=== PATIENT | female | born 1995 | race Caucasian/White ===

== ENCOUNTER 2023-01-24 09:28 | Inpatient (IN) ==
[2023-01-24] MEDS ORDERED: LACTATED RINGER'S 1,000 ML IV PRN (09:46)
[2023-01-24] MEDS ORDERED: LIDOCAINE 1% LOCAL 20 ML VIAL INFIL PRN (09:46)
[2023-01-24] MEDS ORDERED: OXYTOCIN 30 UNITS/500 ML BAG IV PRN ×3 (09:46→16:20)
--- NOTE | 2023-01-24 09:49 | History & Physical Report ---
Date of Service January 24, 2023 Assessment & Plan (1) with 39 completed weeks gestation: (2) Encounter for induction of labor: Plan admit. pitocin induction. desires unmedicated delivery.. arom as indicated. fetus category one. Anticipate . Admission and Anticipated Discharge Date Admission Date: January 24, 2023 History of Present Illness Chief Complaint: elective iol Primary Care Provider: NO PCP Patient is a with iup at 39 1/7 weeks who presents to labor and delivery for elective induction. FOB is a long distance class b truck driver and wanted to schedule induction for convienence. Patient presented to labor and delivery last night for potential bulb and found to be fairly favorable. Notes good fm. no lof/vb/ctx. and Delivery Plans Covid vaccine x 2 BMI 35-39 At Beginning Of *Growth US at 32wks *NSTs at 36wks OB Labs: Blood Type B Positive 06/22/22 Antibody Screen NEGATIVE 06/22/22 Hemoglobin 12.7 g/dl (12.0-16.0) 11/09/22 Hematocrit 38.2 % (34.1-44.9) 11/09/22 Mean Corpuscular Volume 84.9 fL (80.0-100.0) 06/22/22 Platelet Count 282 K/uL (130-400) 06/22/22 Rubella IgG Antibody Immune (Immune) 06/22/22 Rapid Plasma Reagin Nonreactive (Nonreactive) 06/22/22 Hepatitis B Surface Antigen. NON-REACTIVE (NON-REACTIVE) 06/22/22 Hepatitis C Antibody (EIA) NON-REACTIVE (NON-REACTIVE) 06/22/22 HIV (1&2) Ag and Ab Confirmation NON-REACTIVE (NON-REACTIVE) 06/22/22 Glucose 1 Hour 50 gm Load 131 mg/dl (70-130) H 11/09/22 OB Optional Labs: Chlamydia trachomatis RNA NOT DETECTED (NOT DETECTED) 06/22/22 Neisseria gonorrhoeae RNA NOT DETECTED (NOT DETECTED) 06/22/22 Labs Reviewed: cfDNA, cf/sma--declines smp Declines quad--mln passed 28 week s hr gtt--akh gbs neg--akh Allergies Allergy/AdvReac Type Severity Reaction Status Date / Time No Known Allergies Allergy Verified 01/23/23 19:39 Home Medications Medication Instructions Recorded Confirmed Type prenat.vits,nato,vvt-xvsb-okwyf 1 tab PO DAILY 06/18/22 01/23/23 History Patient History Medical History IBS (irritable bowel syndrome) Obesity in , antepartum Surgical History H/O spinal fusion History of repair of ACL Family History Mother Anemia Crohn's disease Social History Smoking Status: Never smoker Hx Alcohol Use: No Hx Substance Use: No marital status: marital status details: Tim (25) [phone] Current Living Situation: Spouse Current Living Situation Comment: lives with spouse, 2 children, 1 dog, 1 cat, spouse to change litter. current occupational status: employed current occupation: daycare worker OB History Past Pregnancies Del. Date GA wks Lbr Lgth wt Sex Type del Anes Place Del Prov ? Comment 03/20/17 37 6lb 10 oz M Non e Other [facility] Sanders N 08/14/19 40 7lb 12oz F None Other KECIA Sanders N [employer]IST History noncontributory Physical Exam Constitutional: WD/WN, vitals as above Gastrointestinal (Abdomen): soft, nt, gravid, obese Psychiatric: A+Ox3, euthymic affect Genitourinary: cx--3/50/-2/soft toco--rare efm--120s with mod variability, accels to 150s, no decels Results & Data Vital Signs (Past 12 Hours) Vital Signs Pulse BP 01/24/23 09:41 74 126/67 Code Status & VTE Plan VTE Prophylaxis Plan VTE Prophylaxis will be ordered: No Coding Level of Care Code None Diagnoses with 39 completed weeks gestation Z3A.39 Encounter for induction of labor Z34.90
[2023-01-24 10:33] LABS: Hematocrit (blood only) 38.6 % (37.0-47.0); Hemoglobin 12.9 g/dl (12.0-16.0); Mean Corpuscular Hemoglobin 27.8 pg (25.0-34.0); Mean Corpuscular Hgb Conc 33.4 g/dL (32.0-36.0); Mean Corpuscular Volume 83.2 fL (80.0-100.0); Mean Platelet Volume 11.4 fL (9.4-12.4); Platelet Count 214 K/uL (130-400); RDW Coefficient of Variation 14.1 % (11.5-14.5); RDW Standard Deviation 42.5 fL (36.4-46.3); Red Blood Count 4.64 M/uL (4.20-5.40); White Blood Count 7.62 K/ul (4.8-10.8)
--- NOTE | 2023-01-24 13:43 | Labor Progress Brief Note ---
Date of Service January 24, 2023 Subjective requesting arom Assessment & Plan (1) Encounter for induction of labor: Plan continue current management. fetus category one. Admission and Anticipated Discharge Date Admission Date: January 24, 2023 Physical Exam Physical Exam: cx--/-2 arom--clear toco--q2-4min, pit at 6 efm--115 with mod variabiltiy, accels to 150s , no decels Results & Data Vital Signs (Past 12 Hours) Vital Signs Temp Pulse Resp BP 01/24/23 09:55 36.4 C L 74 16 126/67 01/24/23 13:37 72 01/24/23 13:37 119/67 01/24/23 13:32 72 01/24/23 13:32 122/77 01/24/23 12:38 63 01/24/23 12:38 113/66 01/24/23 11:38 60 01/24/23 11:38 115/77 01/24/23 10:37 66 01/24/23 10:37 111/72 01/24/23 09:41 74 126/67 Coding Level of Care Code None Diagnoses Encounter for induction of labor Z34.90
[2023-01-24] MEDS ORDERED: bisacodyL 10 MG SUPP PR PRN (16:20)
[2023-01-24] MEDS ORDERED: BENZOCAINE 20% AER SPR 82.5 GM CAN EXT PRN (16:20)
[2023-01-24] MEDS ORDERED: HYDROCORTISONE ACETATE 25 MG SUPP PR PRN (16:20)
[2023-01-24] MEDS ORDERED: DIPHTHERIA/TETANUS/PERTUSSIS 0.5mL SYR/VIAL (Age 7+yrs) IM ONE (16:20)
[2023-01-24] MEDS ORDERED: ACETAMINOPHEN 325 MG TAB PO PRN (16:20)
[2023-01-24] MEDS ORDERED: oxyCODONE/ACETAMINOPHEN 5mg/325mg TAB PO PRN (16:20)
--- NOTE | 2023-01-24 16:24 | Delivery Summary ---
Vaginal Delivery Summary Date of Service January 24, 2023 Vaginal Delivery Summary [facility] Pre-operative Diagnosis: at 39 weeks elective induction Post-operative Diagnosis: same Procedure: pitocin induction arom EBL: 300cc Anesthesia: none Procedure: Patient presented to labor and delivery for elective induction. She underwent pitocin induction and then arom. She progressed to rim/c/0. She was pushing. The cervix was reduced. The patient pushed for one contraction to deliver a viable female in myron position. The rest of the infant was then delivered without difficulty. A loose nuchal cord was reduced prior to delivery of the body. The baby was vigorous. The nose and mouth were bulb suctioned and the infant was placed in the maternal abdomen for drying and attention. Cord was clamped and cut at one minute of life. Cord blood and segment obtained. Placenta delivered spontaneous, intact with a three vessel cord. Cervix/sulci/rectum/perineum were intact. Hemostasis obtained with dilute pitocin and fundal massage. Apgars were 7/8. Mother and baby doing well at the end of the delivery. [facility] Vaginal Delivery Charge Delivery Type Details: [facility]
[2023-01-24] MEDS: IBUPROFEN 600 MG TAB PO PRN (20:02)
[2023-01-24] MEDS: DOCUSATE SODIUM 100 MG CAP PO SCH (20:02)
[2023-01-25] MEDS: IBUPROFEN 600 MG TAB PO PRN ×2 (05:57→12:24)
--- NOTE | 2023-01-25 06:33 | Obstetrical Progress Note ---
Date of Service January 25, 2023 Assessment & Plan (1) Encounter for care after hospital delivery: Plan - Overall, feeling well and eating well today - Infant feeding going well without concern - Urinating and passing gas appropriately - Ambulating well in room - Pain controlled w/ Ibuprofen - Hgb 12.9 on 01/24 - Vitals stable and wnl - Routine PP care progressing well - Anticipate discharge @ 24-48 hr PP - Recommending f/u outpatient in 6 weeks Admission and Anticipated Discharge Date Admission Date: January 24, 2023 Supervising Physician Co-Signing Physician Notes Resident Physician Supervision Note: I interviewed and examined the patient. Discussed with Dr. Hendrix and agree with findings and plan as documented in the note. Any exceptions or clarifications are listed here: Doing well. Patient would like to be d/c today. Patient GBS positive. Treated adequately. Instructions reviewed. Documented By: Faye Mcknight MD, FACOG Subjective Patient is a 27F who is PPD #1 following delivery at 39 1/7. She reports feeling well overall this morning. - Ambulation - well throughout room - Voiding/Cota - independent voids, no dysuria or pressure - Gas/Stool - passing gas, no bowel movement - Diet - regular, no nausea or emesis - Lochia - diminishing, light amount - Feeding Type - breast feeding - Pain Level - 1/10, controlled with Ibuprofen Review of Systems - Denies fever, chills, sweats - Denies shortness of breath, difficulty breathing, chest pain, palpitations, chest pressure. - Denies breast pain. - Denies dysuria. - Denies headache or changes in vision. Physical Exam Physical Exam: General: Alert, oriented. No acute distress. Cardiac: RRR, normal S1/S2, no murmurs/rubs/gallops. Respiratory: Non-labored, CTAB, no wheezes/rales/rhonchi. Symmetric chest rise. Abdomen: Soft, nontender, nondistended. Bowel sounds present. Uterus: Uterine fundus firm, palpable 2 cm below umbilicus. Lower Extremities: Trace extremity edema or swelling. No deep calf pain. Lupillo's negative bilaterally. Results & Data Vital Signs (Past 12 Hours) Vital Signs Temp Pulse Resp BP Pulse Ox O2 Del Method 01/25/23 02:51 36.7 C 64 20 105/67 96 Room Air 01/24/23 22:52 36.7 C 65 18 138/91 96 Room Air 01/24/23 19:16 36.7 C 84 18 122/82 96 Room Air Resident Activity Tracking Resident Involvement: Resident Care Provided Care Provided: OB Delivery
[2023-01-25 06:55] LABS: Hematocrit (blood only) 35.4 % (37.0-47.0)
[2023-01-25] MEDS ORDERED: PRENATAL VITAMIN 1 TAB PO SCH (08:00)
[2023-01-25] MEDS: DOCUSATE SODIUM 100 MG CAP PO SCH (08:16)
[2023-01-25] MEDS ORDERED: bisacodyL 5 MG TABEC PO SCH (20:00)
== END 2023-01-25 18:20 | disposition home or self-care (01) | DRG 807 ==
LOC: 4S1 09:28 → 4E2 18:45